=== PATIENT | male | born 1930 | race Caucasian/White ===

== ENCOUNTER 2017-05-17 12:51 | Outpatient (CLI) | payer MEDICARE ==
[~2017-05-17] VITALS: Ht 175.3 cm; Wt 76.2 kg
[2017-05-17 13:07] VITALS: BP 120/64
[2017-05-17] MEDS ORDERED: ROSU10TA24 PO (13:33)
[2017-05-17] MEDS ORDERED: OMEG1CAP58 PO (13:33)
[2017-05-17] MEDS ORDERED: TAMS0.4C2 PO (13:33)
[2017-05-17] MEDS ORDERED: FAMO20TA3 PO (13:33)
[2017-05-17] MEDS ORDERED: ALLO100T PO (13:33)
[2017-05-17] MEDS ORDERED: LISI10TA2 PO (13:33)
[2017-05-17] MEDS ORDERED: TEST200V21 IM (13:33)
[2017-05-17] MEDS ORDERED: MAGN500C15 PO (13:33)
[2017-05-17] MEDS ORDERED: CALC-823 PO (13:33)
[2017-05-17] MEDS ORDERED: ANAS1TAB7 PO (13:33)
[2017-05-17] MEDS ORDERED: DABI150C5 PO (13:33)
[2017-05-17] MEDS ORDERED: DILT120C82 PO (13:33)
[2017-05-17] MEDS ORDERED: MELA3TAB PO (13:33)
[2017-05-17] MEDS ORDERED: MULT1TAB69 PO (13:33)
[2017-05-18] MEDS ORDERED: CALC-938 PO (13:41)
== END 2017-05-17 13:55 | disposition home or self-care (01) ==
LOC: PREOP 12:51
PROVIDERS: ATTEND Orthopaedic Surgery
DX: Z01.818 Encounter for other preprocedural examination (principal); M48.061 Spinal stenosis, lumbar region without neurogenic claudication
CPT/HCPCS: 87081